=== PATIENT | female | born 1995 | race Caucasian/White ===

== ENCOUNTER 2022-04-15 08:10 | Emergency (ER) | payer BC ==
[~2022-04-15] VITALS: Ht 170.2 cm; Wt 58.5 kg
[2022-04-15 08:19] VITALS: BP 118/92
[2022-04-15] MEDS ORDERED: SUMA50TA2 PO (08:24)
== END 2022-04-15 09:02 | disposition left against medical advice (07) ==
LOC: ER 08:10
DX: G43.909 Migraine, unspecified, not intractable, without status migrainosus (principal)